=== PATIENT | female | born 1990 | race Caucasian/White ===

== ENCOUNTER 2021-11-12 14:40 | Emergency (ER) | payer BC ==
[~2021-11-12] VITALS: Ht 170.2 cm; Wt 108.4 kg
[2021-11-12 14:51] VITALS: BP 126/75
--- NOTE | 2021-11-12 15:04 | NUR ---
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
[2021-11-12] MEDS ORDERED: LORazepam 1 MG TAB PO ONE (16:00)
[2021-11-12 16:18] LABS: BASOPHILS # (AUTO) 0.1 K/uL (0.00-0.22); BASOPHILS % (AUTO) 0.6 % (0.0-2.0); EOSINOPHILS # (AUTO) 0.2 K/uL (0-0.4); HEMOGLOBIN 12.8 g/dL (12.0-16.0); LYMPHOCYTES # (AUTO) 3.2 K/uL (2.5-16.5); LYMPHOCYTES % (AUTO) 34.5 % (20.5-51.1); MEAN CORPUSCULAR HEMOGLOBIN 29 pg (27-31); MEAN CORPUSCULAR HGB CONC 33 g/dL (33-37); MEAN CORPUSCULAR VOLUME 87.5 fL (80-94); MONOCYTES # (AUTO) 0.6 K/uL (0.8-1.0); MONOCYTES % (AUTO) 6.7 % (1.7-9.3); NEUTROPHILS # (AUTO) 5.2 K/uL (1.8-7.7); NEUTROPHILS % (AUTO) 56.2 % (42.2-75.2); PLATELET COUNT (AUTO) 299 K/uL (140-450); RED BLOOD CELL COUNT(AUTO) 4.45 MIL/uL (4.20-5.40); RED CELL DISTRIBUTION WIDTH 14.5 % (11.6-13.7); WHITE BLOOD COUNT (AUTO) 9.2 K/uL (4.8-10.8)
[2021-11-12 16:34] LABS: ANION GAP 11.2 (8-16); CREATININE 0.6 mg/dL (0.6-1.3); POTASSIUM 4.2 mmol/L (3.5-5.1)
[2021-11-12 17:06] VITALS: BP 126/75
--- NOTE | 2021-11-12 17:06 | NUR ---
Patient discharged with v/s stable. Written and verbal after care instructions given and explained. Patient verbalized understanding. Ambulatory with steady gait. All questions addressed prior to discharge. Advised to follow up with PMD.
== END 2021-11-12 17:06 | disposition home or self-care (01) ==
LOC: MED 14:40
DX: R07.89 Other chest pain (principal); R06.02 Shortness of breath; Z88.5 Allergy status to narcotic agent; Z90.49 Acquired absence of other specified parts of digestive tract; Z98.890 Other specified postprocedural states
CPT/HCPCS: 36415; 71045; 80048; 81002; 81025; 85025; 93005; 99285